=== PATIENT | female | born 2005 | race Two or more races ===

== ENCOUNTER 2023-12-04 10:21 | Emergency (ER) | payer OTHER ==
[~2023-12-04] VITALS: Ht 162.6 cm; Wt 67.0 kg
[2023-12-04 11:16] LABS: Basophils # (auto) 0.1 10 ^3/uL (0-0.2); Basophils % (auto) 0.6 % (0.0-2.0); Eosinophils # (auto) 0.4 10 ^3/uL (0-0.8); Eosinophils % (auto) 4.4 % (0.0-7.0); Hematocrit 44.2 % (36.0-46.0); Hemoglobin 14.4 g/dL (12.2-16.2); Lymphocytes # (auto) 2.6 10 ^3/uL (0.4-5.4); Lymphocytes % (auto) 32.3 % (10.0-50.0); Mean Corpuscular Hemoglobin 26.9 pg (28.0-32.0); Mean Corpuscular Hgb Conc. 32.6 g/dL (32.0-36.0); Mean Corpuscular Volume 82.6 fL (80.0-100.0); Monocytes # (auto) 0.8 10 ^3/uL (0-1.3); Monocytes % (auto) 9.2 % (0.0-12.0); Neutrophils # (auto) 4.4 10 ^3/uL (1.6-8.6); Neutrophils % (auto) 53.5 % (37.0-80.0); Nucleated Red Blood Cells % 0.1 %; Red Blood Cells 5.36 10^6/uL (4.0-5.20); Red Cell Distribution Width 13.8 % (11.8-14.3); White Blood Cell 8.2 10^3/uL (4.4-10.8)
[2023-12-04 11:23] LABS: Urine Bacteria NONE SEEN /hpf (None Seen); Urine Blood Negative /uL (Negative); Urine Clarity Clear (Clear); Urine Color Colorless (Yellow); Urine Protein, UAD Negative (Negative); Urine Specific Gravity 1.018 (1.001-1.035); Urine Urobilinogen Normal (Negative); Urine WBC 2 /hpf (0 - 5); Urine pH 7.5 (5.0-8.0)
[2023-12-04] MEDS ORDERED: NITR-87 PO (14:22)
[2023-12-04 14:27] VITALS: BP 124/81; PULSE 73; RESP 18; O2SAT 100
== END 2023-12-04 14:29 | disposition home or self-care (01) ==
LOC: ER 10:21
DX: N39.0 Urinary tract infection, site not specified (principal); R10.2 Pelvic and perineal pain; Z79.899 Other long term (current) drug therapy
CPT/HCPCS: 36415; 76830; 76856; 81001; 84702; 85025

== ENCOUNTER 2024-03-08 13:18 | Emergency (ER) | payer OTHER, MEDICAID ==
[~2024-03-08] VITALS: Ht 162.6 cm; Wt 67.3 kg
[~2024-03-08 13:18] MED LIST: NITR-87 PO
[2024-03-08 14:56] VITALS: BP 121/77; PULSE 95; RESP 12; TEMP 97.4; O2SAT 99
[2024-03-08] MEDS: SILVER SULFADIAZINE 1 % TOPICAL CREAM 50GM TOP ONE (15:42)
[2024-03-08] MEDS ORDERED: BAC09TP TOP (16:14)
[2024-03-08] MEDS ORDERED: ZINC100T5 PO (16:14)
[2024-03-08] MEDS ORDERED: IBUP1TAB5 PO (16:15)
== END 2024-03-08 16:16 | disposition home or self-care (01) ==
LOC: ER 13:18
DX: T22.542A Corrosion of first degree of left axilla, initial encounter (principal); T32.0 Corrosions involving less than 10% of body surface; Z79.899 Other long term (current) drug therapy; Y93.89 Activity, other specified; Y92.89 Other specified places as the place of occurrence of the external cause; Y99.8 Other external cause status
CPT/HCPCS: 16000

== ENCOUNTER 2024-07-01 15:46 | Emergency (ER) | payer MEDICAID, OTHER ==
[~2024-07-01 15:46] MED LIST changes: +BAC09TP TOP; +IBUP1TAB5 PO; +ZINC100T5 PO
== END 2024-07-01 17:10 | disposition left against medical advice (07) ==
LOC: ER 15:46
DX: Z53.21 Procedure and treatment not carried out due to patient leaving prior to being seen by health care provider (principal)